=== PATIENT | male | born 1975 | race Caucasian/White ===

== ENCOUNTER 2016-06-24 12:27 | Emergency (ER) | payer OTHER ==
[~2016-06-24] VITALS: Ht 172.7 cm; Wt 85.7 kg
[2016-06-24 12:31] VITALS: TEMP 37; Ht 172.7 cm; Wt 85.7 kg
[2016-06-24 13:54] LABS: BASO % 0.3 %; BASO ABS # 0.02 K/uL (0-0.2); COMPLETE YES; HEMATOCRIT 49.2 % (42-52); IG% 0.3 %; LYMPH ABS # 1.76 K/uL (1.2-3.4); MEAN CELL VOLUME 89.6 fL (80-100); MEAN CORPUSCULAR HEMOGLOBIN 32.1 pg (25-34); MEAN CORPUSCULAR HGB CONC 35.8 g/dl (32-36); MEAN PLATELET VOLUME 10.6 fL (7.4-10.4); MONO % 8.4 %; PLATELET COUNT 259 K/uL (130-400); RED BLOOD COUNT 5.49 M/uL (4.7-6.1); WHITE BLOOD COUNT 7.03 K/uL (4.8-10.8)
[2016-06-24 14:15] LABS: BUN/CREATININE RATIO 21.9 (10-20); CALCIUM 9.2 mg/dl (8.5-10.1); CREATININE 0.93 mg/dl (0.60-1.40); POTASSIUM 3.6 mmol/L (3.5-5.1)
[2016-06-24 14:39] VITALS: BP 137/86; PULSE 77; O2SAT 98
[2016-06-24] MEDS ORDERED: TERB250T51 PO (14:43)
--- NOTE | 2016-06-24 14:44 | EMERGENCY ROOM VISIT NOTE ---
History First contact with patient: 13:16 Chief Complaint: INFECTION Stated Complaint: PAIN IN AB, ARM, BACK, LEGS-PARASITE INFECTION Nursing Triage Summary: Started with rash on arms, abd, legs "awhile ago". A couple weeks ago started to get generalized pain. Was at PCP yesterday. Today he noticed parasites in his stool. History of Present Illness The patient is a 41 year old male who presents to the Emergency Room with multiple complaints. The first complaint is that he has had a rash on his body for 2 months. He states it started on his arms then went to his chest and abdomen and now is also on his legs. He states is normally only itchy at night. He has tried [id number] treatment with Lotrimin and hydrocortisone cream and any anti-fungal C could find [id number]. He went to his family doctor on multiple occasions for the rash. At first he thought he had Lyme's disease. His Lyme titer came back negative. He went back again yesterday and was referred to a blind hooker. He has an appointment in 2 weeks. The patient denies any new environmental exposures. The patient does admit to getting a puppy 3 months ago just prior to the onset of the symptoms. The patient denies any associated URI symptoms. The patient' s second complaint is that he has had achiness in his upper legs and upper arms for the past 3 weeks. He states he normally gets pain in his legs but is normally in the back of his legs and it comes from his prior back surgery. He states this feels different. He states it feels like his "in the muscles". The patient denies any recent strenuous workouts. The patient is not on any cholesterol medication. The patient certainly complaint is that this morning he noticed a half centimeter threadlike weight "worms" in his stool. The patient admits to only minimal anal pruritus. The patient has never had this before. The patient denies any abdominal pain, nausea, vomiting or diarrhea. Review of Systems 10 system review was performed and was negative unless stated otherwise history of present illness. Past Medical/Surgical History Medical Problems: (1) No significant past medical history (2) Tobacco use Surgical Problems: (1) History of spinal surgery Social History Smoking Status: Current Every Day Smoker Alcohol Use: occasionally Marital Status: Housing Status: lives with family Occupation Status: employed Current/Historical Medications No Active Prescriptions or Reported Meds Allergies Coded Allergies: No Known Allergies (Unverified , 06/24/16) Physical Exam Vital Signs Date Time Temp Pulse Resp B/P Pulse Ox O2 Delivery O2 Flow Rate FiO2 06/24/16 12:31 37.0 105 18 164/86 100 Room Air Physical Exam GENERAL: 41-year-old male appears in no acute distress. MENTAL Status: Alert and oriented 3. NECK: Supple, no lymphadenopathy noted. No carotid bruits noted. LUNGS: Clear auscultation without wheezes rales or rhonchi. CARDIAC: Regular rate and rhythm without murmur. Pulses is full and equal throughout. MUSCULOSKELETAL: Patient is nontender to palpation over the shoulders, hips and knees. He has full range of motion of all joints. He states it is painful if he abducts both his shoulders or if he lifts his legs. ABDOMEN: Positive bowel sounds all 4 quadrants. Soft, nontender to palpation without organomegaly or masses. SKIN: The patient has a diffuse erythematous dry patchy rash with raised edges with some central clearing over bilateral thighs, and tire chest and abdomen, bilateral arms. Medical Decision & Procedures Laboratory Results 06/24/16 13:45 Red Blood Count 5.49, Mean Corpuscular Volume 89.6, Mean Corpuscular Hemoglobin 32.1, Mean Corpuscular Hemoglobin Concent 35.8, Mean Platelet Volume 10.6, Neutrophils (%) (Auto) 64.0, Lymphocytes (%) (Auto) 25.0, Monocytes (%) (Auto) 8.4, Eosinophils (%) (Auto) 2.0, Basophils (%) (Auto) 0.3, Neutrophils # (Auto) 4.50, Lymphocytes # (Auto) 1.76, Monocytes # (Auto) 0.59, Eosinophils # (Auto) 0.14, Basophils # (Auto) 0.02 06/24/16 13:45 Test 06/24/16 13:45 White Blood Count 7.03 K/uL (4.8-10.8) Red Blood Count 5.49 M/uL (4.7-6.1) Hemoglobin 17.6 g/dL (14.0-18.0) Hematocrit 49.2 % (42-52) Mean Corpuscular Volume 89.6 fL (80-100) Mean Corpuscular Hemoglobin 32.1 pg (25-34) Mean Corpuscular Hemoglobin Concent 35.8 g/dl (32-36) Platelet Count 259 K/uL (130-400) Mean Platelet Volume 10.6 fL (7.4-10.4) Neutrophils (%) (Auto) 64.0 % Lymphocytes (%) (Auto) 25.0 % Monocytes (%) (Auto) 8.4 % Eosinophils (%) (Auto) 2.0 % Basophils (%) (Auto) 0.3 % Neutrophils # (Auto) 4.50 K/uL (1.4-6.5) Lymphocytes # (Auto) 1.76 K/uL (1.2-3.4) Monocytes # (Auto) 0.59 K/uL (0.11-0.59) Eosinophils # (Auto) 0.14 K/uL (0-0.5) Basophils # (Auto) 0.02 K/uL (0-0.2) RDW Standard Deviation 46.7 fL (36.4-46.3) RDW Coefficient of Variation 14.2 % (11.5-14.5) Immature Granulocyte % (Auto) 0.3 % Immature Granulocyte # (Auto) 0.02 K/uL (0.00-0.02) Anion Gap 8.0 mmol/L (3-11) Est Creatinine Clear Calc Drug Dose 112.5 ml/min Estimated GFR () 118.6 Estimated GFR (Non- 102.3 BUN/Creatinine Ratio 21.9 (10-20) Calcium Level 9.2 mg/dl (8.5-10.1) Total Bilirubin 0.6 mg/dl (0.2-1) Direct Bilirubin 0.1 mg/dl (0-0.2) Aspartate Amino Transf (AST/SGOT) 9 U/L (15-37) Alanine Aminotransferase (ALT/SGPT) 27 U/L (12-78) Alkaline Phosphatase 68 U/L (45-117) Total Creatine Kinase 86 U/L (39-308) Total Protein 8.0 gm/dl (6.4-8.2) Albumin 4.6 gm/dl (3.4-5.0) Lipase 97 U/L (73-393) ED Course The patient was evaluated. Treatment plan was discussed with Dr. Vee CBC and differential, renal profile, CPK, LFTs were ordered. Labs are reviewed and were unremarkable. The patient was informed of the findings. The patient was unable to give a stool sample while in the emergency room. He will be given supplies to do it at home and bring the stool sample to the laboratory. The patient was informed that we will start him on Lamisil but he will need to follow closely with his family physician. The patient verbalized understanding and was discharged home in stable condition. Medical Decision Differential diagnosis include tinea corporis, contact dermatitis, eczema, viral exanthem, Lyme's disease Impression Primary Impression: Tinea corporis Additional Impressions: Myalgia Other fecal abnormalities Departure Information Dispostion Home / Self-Care Condition GOOD Prescriptions Terbinafine Hcl (LAMISIL) 250 Mg Tab 1 TAB PO DAILY for 10 Days, #10 TAB 1 Refill Prov: Lauren Doss, ENE 06/24/16 Referrals Kyle Bower MD (PCP) Forms HOME CARE DOCUMENTATION FORM, IMPORTANT VISIT INFORMATION, WORK / SCHOOL INSTRUCTIONS Patient Instructions My [facility] Additional Instructions Take Lamisil as directed. Make sure you read all handouts which accompany the Lamisil. Follow-up with your family doctor in 1 week for reevaluation and follow-up lab testing. Also follow-up with your family doctor for persistent muscle aches. Obtain the stool samples as directed by the nurse and bring them to the lab for testing. Problem Qualifiers
== END 2016-06-24 14:55 | disposition home or self-care (01) ==
LOC: C.EDB 12:31 → C.EDA 14:55
DX: B35.4 Tinea corporis (principal); M79.1 Myalgia; R19.5 Other fecal abnormalities; F17.210 Nicotine dependence, cigarettes, uncomplicated

== ENCOUNTER → 2016-06-25 | Outpatient (CLI) | payer OTHER ==
[~2016-06-25] MED LIST: TERB250T51 PO
[2016-07-03 13:54] LABS: O&P SOURCE OTHER-STOOL
== END | disposition home or self-care (01) ==
LOC: C.LAB 09:38
PROVIDERS: ATTEND Emergency Medicine
DX: B82.9 Intestinal parasitism, unspecified (principal)

== ENCOUNTER 2016-07-06 13:58 | Emergency (ER) | payer OTHER ==
[~2016-07-06] VITALS: Ht 172.7 cm; Wt 82.0 kg
[2016-07-06 14:09] VITALS: TEMP 37; Ht 172.7 cm; Wt 82.0 kg
[2016-07-06 15:13] LABS: BASO % 0.7 %; BASO ABS # 0.04 K/uL (0-0.2); COMPLETE YES; EOS % 3.6 %; HEMATOCRIT 46.5 % (42-52); IG% 0.2 %; LYMPH % 32.6 %; LYMPH ABS # 1.82 K/uL (1.2-3.4); MEAN CELL VOLUME 89.9 fL (80-100); MEAN CORPUSCULAR HEMOGLOBIN 31.3 pg (25-34); MEAN CORPUSCULAR HGB CONC 34.8 g/dl (32-36); MEAN PLATELET VOLUME 10.5 fL (7.4-10.4); MONO % 6.3 %; NEUT % 56.6 %; PLATELET COUNT 265 K/uL (130-400); RED BLOOD COUNT 5.17 M/uL (4.7-6.1); WHITE BLOOD COUNT 5.59 K/uL (4.8-10.8)
[2016-07-06 15:17] LABS: CALCIUM 8.7 mg/dl (8.5-10.1); POTASSIUM 3.9 mmol/L (3.5-5.1)
[2016-07-06 15:21] LABS: BUN/CREATININE RATIO 19.7 (10-20); CREATININE 0.91 mg/dl (0.60-1.40)
[2016-07-06 15:24] LABS: ALB/GLOB RATIO 1.5 (0.9-2)
[2016-07-06] MEDS ORDERED: OXYCODONE IR HOME PACK PO ONE (16:15)
[2016-07-06 16:19] VITALS: BP 130/71; PULSE 69; O2SAT 98
--- NOTE | 2016-07-06 19:26 | EMERGENCY ROOM VISIT NOTE ---
History Report prepared by Karen: Mckenna Khan Under the Supervision of: Dr. Jorge Vee M.D. First contact with patient: 15:03 Chief Complaint: ABDOMINAL PAIN Stated Complaint: ABDOMINAL PAIN Nursing Triage Summary: pt here with low abd pains x a few weeks, pt had ct on thursday and was told may have crohns. denies n/v History of Present Illness The patient is a 41 year old male who presents to the Emergency Room with complaints of abdominal pain that began 3-4 weeks ago. His pain worsened significantly yesterday. He states that the pain is in an anchor shape on his abdomen and is worst in the right lower quadrant. He describes it as twisting. Eating makes his pain worse. He has not eaten much but notes that when he does, he has diarrhea which contains bright red blood. He has had one episode of vomiting this week after feeling lightheaded and nauseous but has not had any episodes since then. The patient was seen in the emergency room on June 24 for a rash and because he noticed worms in his stool. His stool was tested and results were negative. No parasites were identified. He is scheduled to see dermatology in July 18. 3 days ago, the patient had an abdominal CT that was ordered by his PCP and his results were suggestive of Crohn's disease. He has an appointment with gastroenterology next week on Thursday. Currently, the patient still has a rash on his upper body. It is itchy on occasion. It is improving. Denies fever, urinary symptoms, or other complaints. There is no family history of Crohn's disease. He is not on any steroids or anything for pain. Source of History: patient Onset: 3-4 weeks ago Position: abdomen (anchor shape on abdomen, worst in RLQ) Quality: other (twisting) Timing: worsening Modifying Factors (Worsening): eating Associated Symptoms: + diarrhea (with bright red blood), + rash, + vomiting (1 episode), No fevers, No urinary symptoms Review of Systems See HPI for pertinent positives & negatives. A total of 10 systems reviewed and were otherwise negative. Past Medical & Surgical Medical Problems: (1) No significant past medical history (2) Tobacco use Surgical Problems: (1) History of spinal surgery Family History Cancer Social History Smoking Status: Never Smoker Alcohol Use: occasionally Marital Status: Housing Status: lives with family Occupation Status: employed Current/Historical Medications No Active Prescriptions or Reported Meds Allergies Coded Allergies: No Known Allergies (Unverified , 07/06/16) Physical Exam Vital Signs Date Time Temp Pulse Resp B/P Pulse Ox O2 Delivery O2 Flow Rate FiO2 07/06/16 16:19 69 16 130/71 98 07/06/16 14:09 37.0 83 16 144/97 97 Physical Exam Constitutional: Vital signs reviewed. Eyes: Pupils are equal round reactive to light. Conjunctiva are noninjected. ENT: Pharynx is clear without erythema or exudate. Mucous membranes are moist. Neck supple without meningeal signs. Respiratory: Clear to auscultation bilaterally. Breath sounds are equal bilaterally. Cardiovascular: Regular rate and rhythm. No rubs or gallops. GI: Soft, nondistended, right lower quadrant tenderness without guarding. Bowel sounds are present. Musculoskeletal: No peripheral edema. No CVA tenderness. Integumentary: No cyanosis. Scattered erythematous macular rash over trunk and extremities. No vesicles or bullae. Neurological: The patient is awake and alert. No focal deficits. Psychiatric: Normal affect. Medical Decision & Procedures Laboratory Results 07/06/16 14:20 Red Blood Count 5.17, Mean Corpuscular Volume 89.9, Mean Corpuscular Hemoglobin 31.3, Mean Corpuscular Hemoglobin Concent 34.8, Mean Platelet Volume 10.5, Neutrophils (%) (Auto) 56.6, Lymphocytes (%) (Auto) 32.6, Monocytes (%) (Auto) 6.3, Eosinophils (%) (Auto) 3.6, Basophils (%) (Auto) 0.7, Neutrophils # (Auto) 3.17, Lymphocytes # (Auto) 1.82, Monocytes # (Auto) 0.35, Eosinophils # (Auto) 0.20, Basophils # (Auto) 0.04 07/06/16 14:20 Test 07/06/16 14:20 White Blood Count 5.59 K/uL (4.8-10.8) Red Blood Count 5.17 M/uL (4.7-6.1) Hemoglobin 16.2 g/dL (14.0-18.0) Hematocrit 46.5 % (42-52) Mean Corpuscular Volume 89.9 fL (80-100) Mean Corpuscular Hemoglobin 31.3 pg (25-34) Mean Corpuscular Hemoglobin Concent 34.8 g/dl (32-36) Platelet Count 265 K/uL (130-400) Mean Platelet Volume 10.5 fL (7.4-10.4) Neutrophils (%) (Auto) 56.6 % Lymphocytes (%) (Auto) 32.6 % Monocytes (%) (Auto) 6.3 % Eosinophils (%) (Auto) 3.6 % Basophils (%) (Auto) 0.7 % Neutrophils # (Auto) 3.17 K/uL (1.4-6.5) Lymphocytes # (Auto) 1.82 K/uL (1.2-3.4) Monocytes # (Auto) 0.35 K/uL (0.11-0.59) Eosinophils # (Auto) 0.20 K/uL (0-0.5) Basophils # (Auto) 0.04 K/uL (0-0.2) RDW Standard Deviation 45.7 fL (36.4-46.3) RDW Coefficient of Variation 13.9 % (11.5-14.5) Immature Granulocyte % (Auto) 0.2 % Immature Granulocyte # (Auto) 0.01 K/uL (0.00-0.02) Anion Gap 11.0 mmol/L (3-11) Est Creatinine Clear Calc Drug Dose 104.4 ml/min Estimated GFR () 121.8 Estimated GFR (Non- 105.0 BUN/Creatinine Ratio 19.7 (10-20) Calcium Level 8.7 mg/dl (8.5-10.1) Total Bilirubin 0.5 mg/dl (0.2-1) Aspartate Amino Transf (AST/SGOT) 10 U/L (15-37) Alanine Aminotransferase (ALT/SGPT) 18 U/L (12-78) Alkaline Phosphatase 58 U/L (45-117) Total Protein 7.5 gm/dl (6.4-8.2) Albumin 4.5 gm/dl (3.4-5.0) Globulin 3.0 gm/dl (2.5-4.0) Albumin/Globulin Ratio 1.5 (0.9-2) Lipase 92 U/L (73-393) Laboratory results as reviewed by me. Medications Administered Medications (Trade) Dose Ordered Sig/Farzad Route Start Time Stop Time Status Last Admin Dose Admin Oxycodone HCl (Roxicodone Immediate Rel 5MG Home Pack) 1 homepack UD ONCE PO 07/06/16 16:15 07/06/16 16:16 DC 07/06/16 16:15 1 HOMEPACK ED Course 1506: The patient was evaluated in room B8. A complete history and physical exam was performed. 1550: I discussed the case with Marty Becerril. He said to having the patient call the office tomorrow and get scheduled for a colonoscopy. He recommended against putting him on Prednisone and said to put him on a low residue diet. 1556: I discussed the plan with him. He said that he has an appointment Thursday and will call tomorrow to see if he can move the colonoscopy sooner. We talked about pain medicines. He has been taking Motrin but has been able to sleep, so I will send him home with an Oxy homepack. I told him to come back if his pain is any worse or if he develops a fever. The patient will be discharged home. 1615: Ordered Oxycodone HCl 1 homepack PO. Medical Decision This is a 41-year-old male presents with lower abdominal pain. Differential diagnosis includes Crohn's disease, ulcerative colitis, irritable bowel syndrome , appendicitis, mass. I did perform a limited focused review of portions of the patient's old chart on the electronic medical record. The patient was here on the . He had a rash and noticed worms coming out of his stool. He was discharged on Lamisil for tinea corporus. He had stool testing for ova and parasites which was negative on the . He had a CT on the that showed mild wall thickening of the short segment of the terminal ileum which may represent infectious or inflammatory enteritis. The appendix is unremarkable. I did evaluate the patient as noted above. He is presenting with lower abdominal pain for several weeks. He did have a CT recently which showed inflammation of the terminal ileum. He is having persistent and worsening pain. IV access was established. I did review the patient's blood work as noted in the electronic medical record. He does not have any elevation of his white blood cell count. I did discuss the case with Dr. Muhammad of gastroenterology. He did not recommend placing the patient on steroids. He did recommend close follow up for colonoscopy. I did discuss this with the patient. He does have an appointment in 3 days to see the can doffer which he will keep. He did request something stronger for pain as Motrin was not helping. He was given a home pack of oxycodone but advised to return immediately should he have any worsening pain or develop any new symptoms such as fever or vomiting. He was discharged in good condition. Consults Time Called: 1547 Consulting Physician: Marty Becerril GI Returned Call: 1550 I discussed the case with him. He said to having the patient call the office tomorrow and get scheduled for a colonoscopy. He recommended against putting him on Prednisone and said to put him on a low residue diet. Impression Primary Impression: Right lower quadrant pain Scribe Attestation The scribe's documentation has been prepared under my direct and personally reviewed by me in its entirety. I confirm that the note above accurately reflects all work, treatment, procedures, and medical decision making performed by me. Departure Information Dispostion Home / Self-Care Prescriptions No Active Prescriptions or Reported Meds Referrals No Doctor, Assigned (PCP) Kyle Bower MD Forms Call Back Authorization, HOME CARE DOCUMENTATION FORM, IMPORTANT VISIT INFORMATION, Work Instructions Patient Instructions My [facility] Additional Instructions You have been examined and treated today on an emergency basis only. This is not a substitute for, or an effort to provide, complete comprehensive medical care. It is impossible to recognize and treat all injuries or illnesses in a single emergency department visit. It is therefore important that you follow up closely with gastroenterology per your appointment. As per Dr. Muhammad talk to the office about having a colonoscopy. Return for worsening symptoms or if you develop fever, vomiting, or any other concerning symptoms.
== END 2016-07-06 16:21 | disposition home or self-care (01) ==
LOC: C.EDB 14:09
DX: R10.31 Right lower quadrant pain (principal); Z72.0 Tobacco use